=== PATIENT | female | born 1995 | race Caucasian/White ===

== ENCOUNTER → 2017-08-25 | Outpatient (CLI) | payer OTHER ==
[~2017-08-25] MED LIST: DESO1TAB38 PO; DESO1TAB73 PO; NAPR-1023 PO; PRAZ1CAP5 PO; PROP40TA7 PO; TRAM-355 PO; TRAM50TA4 PO
== END | disposition home or self-care (01) ==
LOC: OIH 10:36
PROVIDERS: ATTEND Orthopaedic Surgery
DX: M25.561 Pain in right knee (principal)
CPT/HCPCS: 73700

== ENCOUNTER 2017-09-29 06:21 | Day surgery (SDC) | payer OTHER, SELFPAY ==
[2017-09-28 15:55] VITALS: BP 122/83
[2017-09-28 15:59] LABS: EOSINOPHILS % (AUTO) 2.7 % (0.0-8.0); HEMATOCRIT 38.2 % (36-48); LYMPHOCYTES % (AUTO) 30.8 % (21.0-51.0); MEAN CORPUSCULAR HEMOGLOBIN 27.2 pg (27.0-33.0); MEAN CORPUSCULAR HGB CONC 33.2 g/dL (32.0-36.0); MONOCYTES % (AUTO) 5.9 % (3.0-13.0); NEUTROPHILS % (AUTO) 59.6 % (40.0-77.0); PLATELET COUNT (AUTO) 466 K/uL (130-400); RED BLOOD CELL COUNT(AUTO) 4.66 MIL/uL (4.00-5.50); RED CELL DISTRIBUTION WIDTH 14.7 % (11.0-15.5); WHITE BLOOD COUNT (AUTO) 8.3 K/uL (4.8-10.8)
[2017-09-28 16:09] LABS: POTASSIUM 4.5 mmol/L (3.5-5.1)
[~2017-09-29] VITALS: Ht 167.6 cm; Wt 98.3 kg
[2017-09-29] VITALS (16 sets, daily range): BP systolic 102–135; BP diastolic 61–87
[2017-09-29] MEDS: CEFAZOLIN SODIUM 1 GM VIAL IVP SCH ×2 (06:00→08:38)
[~2017-09-29 06:21] MED LIST changes: -DESO1TAB38 PO; +DEXAMETHASONE SOD PHOSPHATE 10MG/ML 1ML VIAL ONE; +FENTANYL CITRATE PF 50 MCG/1 ML 2ML VIAL ONE; +GLYCOPYRROLATE 0.2 MG/ML 5 ML VIAL ONE; +LIDOCAINE PF 2% 5ML ABBOJECT ONE; +MIDAZOLAM HCL 1 MG/ML 2ML VIAL ONE; -PRAZ1CAP5 PO; -PROP40TA7 PO; +PROPOFOL 10 MG/ML 20ML VIAL IV ONE; -TRAM50TA4 PO
[2017-09-29] MEDS ORDERED: LACTATED RINGERS 1000ML 1,000 ML IV ONE (06:51)
[2017-09-29] MEDS ORDERED: CEFAZOLIN SODIUM 1 GM VIAL ONE (08:25)
[2017-09-29] MEDS ORDERED: FENTANYL CITRATE PF 50 MCG/1 ML 2ML VIAL ONE ×2 (08:41→09:09)
[2017-09-29] MEDS ORDERED: PROPOFOL 10 MG/ML 20ML VIAL IV ONE (08:57)
[2017-09-29] MEDS ORDERED: OCTYL 2-CYANOACRYLATE 1 EACH TP ONE (09:09)
[2017-09-29] MEDS ORDERED: MEPERIDINE-PF 25 MG/ML SYG ONE ×2 (09:29→09:40)
== END 2017-09-29 10:47 | disposition home or self-care (01) ==
LOC: DAH 06:21
PROVIDERS: ATTEND Orthopaedic Surgery
DX: T84.84XA Pain due to internal orthopedic prosthetic devices, implants and grafts, initial encounter (principal); Z68.37 Body mass index [BMI] 37.0-37.9, adult; Z79.899 Other long term (current) drug therapy; Z90.49 Acquired absence of other specified parts of digestive tract; Z98.890 Other specified postprocedural states; M70.51 Other bursitis of knee, right knee; F41.9 Anxiety disorder, unspecified; E66.9 Obesity, unspecified
CPT/HCPCS: 20680; 36415; 80048; 84703; 85025; 88300; A4218; A4606; A4649; A4930 ×3; A6223; J0690 ×2; J1100; J2001; J2175 ×2; J2250; J2704 ×2; J3010 ×3; J3490; J7120 ×2

== ENCOUNTER 2019-02-04 06:40 | Day surgery (SDC) | payer BC ==
[2019-02-01 10:02] VITALS: BP 141/91
[2019-02-01 10:02] LABS: BASOPHILS % (AUTO) 0.9 % (0.0-5.0); EOSINOPHILS % (AUTO) 2.2 % (0.0-8.0); HEMATOCRIT 38.9 % (36-48); LYMPHOCYTES % (AUTO) 32.7 % (21.0-51.0); MEAN CORPUSCULAR HEMOGLOBIN 27.8 pg (27.0-33.0); MEAN CORPUSCULAR HGB CONC 32.7 g/dL (32.0-36.0); MEAN CORPUSCULAR VOLUME 84.8 fL (79-99); MONOCYTES % (AUTO) 6.3 % (3.0-13.0); NEUTROPHILS % (AUTO) 57.9 % (40.0-77.0); PLATELET COUNT (AUTO) 422 K/uL (130-400); RED BLOOD CELL COUNT(AUTO) 4.59 MIL/uL (4.00-5.50); RED CELL DISTRIBUTION WIDTH 14.5 % (11.0-15.5); WHITE BLOOD COUNT (AUTO) 11.4 K/uL (4.8-10.8)
[2019-02-01 10:12] LABS: CREATININE 1.1 mg/dL (0.5-1.5)
--- NOTE | 2019-02-01 16:05 | NUR ---
LABS ABNORMAL LABS CALLED TO DR. MEZA. NO FURTHER ORDERS GIVEN
[2019-02-04] VITALS (16 sets, daily range): BP systolic 114–135; BP diastolic 62–83
[~2019-02-04] VITALS: Ht 166.4 cm; Wt 115.2 kg
[~2019-02-04 06:40] MED LIST changes: -DEXAMETHASONE SOD PHOSPHATE 10MG/ML 1ML VIAL ONE; -FENTANYL CITRATE PF 50 MCG/1 ML 2ML VIAL ONE; -GLYCOPYRROLATE 0.2 MG/ML 5 ML VIAL ONE; -LIDOCAINE PF 2% 5ML ABBOJECT ONE; -MIDAZOLAM HCL 1 MG/ML 2ML VIAL ONE; -NAPR-1023 PO; -PROPOFOL 10 MG/ML 20ML VIAL IV ONE
[2019-02-04] MEDS ORDERED: LACTATED RINGERS 1000ML 1,000 ML IV ONE (06:52)
[2019-02-04] MEDS: CEFAZOLIN SODIUM 1 GM VIAL ONE ×2 (07:44→08:45)
[2019-02-04] MEDS ORDERED: MIDAZOLAM HCL 1 MG/ML 2ML VIAL ONE (08:27)
[2019-02-04] MEDS ORDERED: FENTANYL CITRATE PF 50 MCG/1 ML 5ML AMP IV ONE ×2 (08:27→09:23)
[2019-02-04] MEDS ORDERED: PROPOFOL 10 MG/ML 20ML VIAL IV ONE (08:27)
[2019-02-04] MEDS ORDERED: LIDOCAINE HCL MPF 1% 5ML VIAL ONE (08:30)
[2019-02-04] MEDS ORDERED: ROPIVACAINE 0.5% 5MG/ML 30ML IJ ONE (08:37)
[2019-02-04] MEDS ORDERED: KETOROLAC TROMETHAMINE 30MG/ML ONE (08:56)
[2019-02-04] MEDS ORDERED: DEXAMETHASONE SOD PHOSPHATE 10MG/ML 1ML VIAL ONE (09:15)
[2019-02-04] MEDS ORDERED: ONDANSETRON HCL 4 MG/2 ML VIAL ONE (09:16)
[2019-02-04] MEDS ORDERED: CEFAZOLIN SODIUM 1 GM VIAL ONE (09:25)
[2019-02-04] MEDS ORDERED: TYL3 PO (10:01)
[2019-02-04] MEDS ORDERED: CEPH500B PO (10:01)
--- NOTE | 2019-02-04 10:45 | NUR ---
POST OP RECEIVED PT FROM PACU, S/P REMOVAL OF FOREIGN BODY TO RIGHT KNEE, DRESSING TO SITE DRY AND INTACT,NEUROVASCULAR CHECKS WNL. PATIENT AWAKE AND ALERT, VS STABLE ON ARRIVAL. PLAN OF CARE DISCUSS WITH PATIENT /FAMILY.
--- NOTE | 2019-02-04 11:15 | NUR ---
dc dc instructions given to pt s aunt with rx, instructed to f/u with dr. metcalf. patient states codeine "makes her get headaches". Dr. Metcalf in surgery. pending call back from him to inform him about that. Patient states she will take prescription anyway. Right knee dressing dry and intact, neurovascular checks wnl. patient denies any pain or discomforts.
--- NOTE | 2019-02-04 11:25 | NUR ---
dc pt dc home via [place], no distress noted. accompanied by aunt.patient didnt want to wait for Dr. Weinberg to call back
== END 2019-02-04 11:25 | disposition home or self-care (01) ==
LOC: DAH 06:40
PROVIDERS: ATTEND Orthopaedic Surgery
DX: T84.116A Breakdown (mechanical) of internal fixation device of bone of right lower leg, initial encounter (principal); M25.561 Pain in right knee; G89.29 Other chronic pain; Y83.8 Other surgical procedures as the cause of abnormal reaction of the patient, or of later complication, without mention of misadventure at the time of the procedure; Y92.89 Other specified places as the place of occurrence of the external cause; Z88.8 Allergy status to other drugs, medicaments and biological substances; Z79.899 Other long term (current) drug therapy; Z79.2 Long term (current) use of antibiotics; E66.01 Morbid (severe) obesity due to excess calories; Z68.41 Body mass index [BMI] 40.0-44.9, adult; F41.9 Anxiety disorder, unspecified; Z90.49 Acquired absence of other specified parts of digestive tract; Z98.890 Other specified postprocedural states; Z82.49 Family history of ischemic heart disease and other diseases of the circulatory system
CPT/HCPCS: 20680; 36415; 64447; 76942; 80048; 84703; 85025; 88300; A4649 ×2; A4930; G0168; J0690 ×2; J1100; J1885; J2250; J2405; J2704; J2795; J3010 ×2; J3490; J7120

== ENCOUNTER 2019-05-29 21:02 | Emergency (ER) | payer BC ==
[~2019-05-29 21:02] MED LIST changes: +CEPH500B PO; -TRAM-355 PO; +TYL3 PO
[2019-05-29] MEDS ORDERED: SODIUM CHLORIDE 0.9% 1000ML 1,000 ML IV ONE ×2 (21:45→22:50)
[2019-05-29] MEDS ORDERED: ONDANSETRON HCL 4 MG/2 ML VIAL ONE (21:47)
[2019-05-29] MEDS ORDERED: KETOROLAC TROMETHAMINE 30MG/ML ONE (22:01)
[2019-05-29 22:16] LABS: BASOPHILS % (AUTO) 0.2 % (0.0-5.0); EOSINOPHILS % (AUTO) 0.2 % (0.0-8.0); HEMATOCRIT 40.1 % (36-48); LYMPHOCYTES % (AUTO) 4.2 % (21.0-51.0); MEAN CORPUSCULAR HEMOGLOBIN 27.4 pg (27.0-33.0); MEAN CORPUSCULAR HGB CONC 31.9 g/dL (32.0-36.0); MEAN CORPUSCULAR VOLUME 85.7 fL (79-99); MONOCYTES % (AUTO) 3.5 % (3.0-13.0); NEUTROPHILS % (AUTO) 91.7 % (40.0-77.0); PLATELET COUNT (AUTO) 416 K/uL (130-400); RED BLOOD CELL COUNT(AUTO) 4.68 MIL/uL (4.00-5.50); RED CELL DISTRIBUTION WIDTH 14.1 % (11.0-15.5); WHITE BLOOD COUNT (AUTO) 13.1 K/uL (4.8-10.8)
[2019-05-29 22:51] LABS: CREATININE 1.3 mg/dL (0.5-1.5); POTASSIUM 3.7 mmol/L (3.5-5.1)
[2019-05-29 22:55] LABS: ALBUMIN 3.5 g/dL (3.5-5.0); BILIRUBIN,TOTAL 0.4 mg/dL (0.2-1.0); TOTAL PROTEIN, SERUM 7.7 g/dL (6.0-8.3)
[2019-05-29 23:15] LABS: APPEARANCE,URINE Clear (CLEAR); BILIRUBIN,URINE Negative (NEGATIVE); COLOR,URINE Yellow (YELLOW); GLUCOSE, URINE (UA) Negative (NEGATIVE); KETONES,URINE Trace mg/dL (NEGATIVE); LEUKOCYTE ESTERASE ,URINE Negative (NEGATIVE); NITRATE,URINE Negative (NEGATIVE); OCCULT BLOOD,URINE Moderate (NEGATIVE); PROTEIN,URINE Negative (NEGATIVE); UROBILINOGEN,URINE 0.2 mg/dL (0.2-1.0)
[2019-05-29 23:18] LABS: HCG,QUAL RESULT NEGATIVE (NEGATIVE)
[2019-05-29 23:21] LABS: BACTERIA,URINE None Seen /HPF (None Seen); MUCUS,URINE Few LPF (None Seen); SQUAMOUS EPITHELIAL CELL,UR Few /HPF (0-2); WBC,URINE None Seen /HPF (0-1)
[2019-05-29] MEDS ORDERED: CEFTRIAXONE SODIUM 1 GM ONE (23:22)
[2019-05-29] MEDS ORDERED: ACETAMINOPHEN 325 MG TAB ONE (23:22)
== END 2019-05-30 00:41 | disposition home or self-care (01) ==
LOC: EDH 21:02
DX: K52.9 Noninfective gastroenteritis and colitis, unspecified (principal); E86.0 Dehydration; Z98.890 Other specified postprocedural states; Z72.0 Tobacco use
CPT/HCPCS: 36415; 80053; 81001; 81025; 83690; 85025; 96361 ×2; 96374; 96375; 99284; J0696; J1885; J2405; J7030 ×2

== ENCOUNTER 2019-08-14 05:52 | Day surgery (SDC) | payer OTHER ==
[~2019-08-14] VITALS: Ht 165.1 cm; Wt 108.9 kg
[~2019-08-14 05:52] MED LIST changes: -CEPH500B PO; -TYL3 PO
[2019-08-14] MEDS ORDERED: SODIUM CHLORIDE 0.9% 1000ML 1,000 ML IV ONE (06:22)
[2019-08-14 06:37] VITALS: BP 138/102
[2019-08-14] MEDS ORDERED: MIDAZOLAM HCL 1 MG/ML 2ML VIAL ONE (06:50)
[2019-08-14] MEDS ORDERED: PROPOFOL 10 MG/ML 20ML VIAL IV ONE ×2 (06:50→07:33)
[2019-08-14] MEDS ORDERED: LIDOCAINE HCL 2% 20ML ONE (06:50)
[2019-08-14 07:41] VITALS: BP 154/94
[2019-08-14] MEDS ORDERED: ONDANSETRON HCL 4 MG/2 ML VIAL ONE (07:42)
[2019-08-14 07:46] VITALS: BP 141/92
[2019-08-14 07:51] VITALS: BP 140/88
[2019-08-14 07:56] VITALS: BP 135/86
[2019-08-14 08:02] VITALS: BP 142/89
== END 2019-08-14 08:11 | disposition home or self-care (01) ==
LOC: DAH 05:52 → ENDO 05:52
PROVIDERS: ATTEND Internal Medicine
DX: K29.70 Gastritis, unspecified, without bleeding (principal); K31.89 Other diseases of stomach and duodenum; F41.9 Anxiety disorder, unspecified; F32.9 Major depressive disorder, single episode, unspecified; E66.9 Obesity, unspecified; Z68.39 Body mass index [BMI] 39.0-39.9, adult; Z79.899 Other long term (current) drug therapy; Z98.890 Other specified postprocedural states; Z88.8 Allergy status to other drugs, medicaments and biological substances
CPT/HCPCS: 36415; 43239; 84703; A4215; A4221; A4222; A4223; A4606; A4620; A4649; A4663; J2250; J2405; J2704 ×2; J3490; J7030

== ENCOUNTER 2019-09-12 11:35 | Emergency (ER) | payer OTHER | END 2019-09-12 12:22 | disposition home or self-care (01) | LOC: EDH 11:35 | DX: M25.511 Pain in right shoulder (principal); Z90.49 Acquired absence of other specified parts of digestive tract; Z87.891 Personal history of nicotine dependence | CPT/HCPCS: 99281 ==

== ENCOUNTER → 2019-10-21 | Outpatient (CLI) | payer OTHER | END | disposition home or self-care (01) | LOC: LAB 14:05 | PROVIDERS: ATTEND Internal Medicine | DX: B96.81 Helicobacter pylori [H. pylori] as the cause of diseases classified elsewhere (principal) | CPT/HCPCS: 36415; 83013 ==

== ENCOUNTER 2021-02-05 06:58 | Day surgery (SDC) | payer OTHER ==
[2021-02-05] VITALS (15 sets, daily range): BP systolic 127–154; BP diastolic 74–96
[~2021-02-05 06:58] MED LIST changes: +ACET-2247 PO; +CALDOLOR 800MG+NS 250ML 250 ML IV SCH; -DESO1TAB73 PO; +DIPH25CA85 PO; +LACTATED RINGERS 1000ML 1,000 ML IV SCH; +NORE1TAB28 PO; +SERT25TA PO
[2021-02-05 07:29] LABS: BASOPHILS % (AUTO) 0.9 % (0.0-5.0); EOSINOPHILS % (AUTO) 1.4 % (0.0-8.0); HEMATOCRIT 36.6 % (36-48); LYMPHOCYTES % (AUTO) 27.9 % (21.0-51.0); MEAN CORPUSCULAR HEMOGLOBIN 27.5 pg (27.0-33.0); MEAN CORPUSCULAR HGB CONC 32.2 g/dL (32.0-36.0); MEAN CORPUSCULAR VOLUME 85.3 fL (79-99); MONOCYTES % (AUTO) 6.5 % (3.0-13.0); PLATELET COUNT (AUTO) 448 K/uL (130-400); RED BLOOD CELL COUNT(AUTO) 4.29 MIL/uL (4.00-5.50); RED CELL DISTRIBUTION WIDTH 14.5 % (11.0-15.5); WHITE BLOOD COUNT (AUTO) 9.6 K/uL (4.8-10.8)
[2021-02-05] MEDS ORDERED: SUCCINYLCHOLINE CHLORIDE 20 MG/ML 10 ML VIAL ONE (08:15)
[2021-02-05] MEDS ORDERED: PROPOFOL 10 MG/ML 20ML VIAL IV ONE (08:15)
[2021-02-05] MEDS ORDERED: FENTANYL CITRATE PF 50 MCG/1 ML 2ML VIAL ONE (08:15)
[2021-02-05] MEDS ORDERED: LIDOCAINE HCL MPF 1% 5ML VIAL ONE (08:15)
[2021-02-05] MEDS ORDERED: ROCURONIUM 10MG/1ML SYR 10 MG/ML ML ONE (08:15)
[2021-02-05] MEDS ORDERED: MIDAZOLAM HCL 1 MG/ML 2ML VIAL ONE (08:15)
[2021-02-05] MEDS: CEFAZOLIN SODIUM 1 GM VIAL IVP SCH ×2 (08:30→08:53)
[2021-02-05] MEDS ORDERED: GLYCOPYRROLATE 1 MG/5 ML SYRINGE ONE (08:38)
[2021-02-05] MEDS ORDERED: NEOSTIGMINE 5MG/5ML SYR IV ONE (08:38)
[2021-02-05] MEDS ORDERED: ONDANSETRON 4MG INJ ONE (08:55)
[2021-02-05] MEDS ORDERED: MEPERIDINE-PF 25 MG/ML SYG ONE (09:01)
[2021-02-05] MEDS ORDERED: MORPHINE 2 MG SYG ONE (09:17)
== END 2021-02-05 10:15 | disposition home or self-care (01) ==
LOC: DAH 06:58
PROVIDERS: ATTEND Obstetrics & Gynecology
DX: N92.1 Excessive and frequent menstruation with irregular cycle (principal); G43.909 Migraine, unspecified, not intractable, without status migrainosus; F41.9 Anxiety disorder, unspecified; F32.9 Major depressive disorder, single episode, unspecified; K21.9 Gastro-esophageal reflux disease without esophagitis; Z90.49 Acquired absence of other specified parts of digestive tract; Z79.899 Other long term (current) drug therapy; Z20.822 Contact with and (suspected) exposure to COVID-19
CPT/HCPCS: 36415; 58558; 84703; 85025; 86850; 86900; 86901; 87635; A4215; A4221; A4222; A4223; A4351; A4355; A4663; A6260; C9803; J0330; J0690; J1741; J2175; J2250; J2405; J2704; J2710; J3010; J3490 ×2; J7030 ×2; J7120

== ENCOUNTER 2021-12-21 06:10 | Day surgery (SDC) | payer OTHER ==
[2021-12-17 12:06] LABS: BASOPHILS % (AUTO) 0.6 % (0.0-5.0); EOSINOPHILS % (AUTO) 1.3 % (0.0-8.0); HEMATOCRIT 39.1 % (36-48); LYMPHOCYTES % (AUTO) 28.8 % (21.0-51.0); MEAN CORPUSCULAR HGB CONC 31.7 g/dL (32.0-36.0); MEAN CORPUSCULAR VOLUME 85.2 fL (79-99); MONOCYTES % (AUTO) 6.7 % (3.0-13.0); NEUTROPHILS % (AUTO) 62.4 % (40.0-77.0); PLATELET COUNT (AUTO) 455 K/uL (130-400); RED BLOOD CELL COUNT(AUTO) 4.59 MIL/uL (4.00-5.50); RED CELL DISTRIBUTION WIDTH 15.4 % (11.0-15.5); WHITE BLOOD COUNT (AUTO) 9.1 K/uL (4.8-10.8)
[2021-12-17 12:21] LABS: INR 0.93 (0.85-1.15); PROTHROMBIN TIME 9.8 SEC (9.6-11.6)
[2021-12-17 12:23] LABS: PARTIAL THROMBOPLASTIN TIME 26.4 SEC (26.3-35.5)
[2021-12-17 12:33] LABS: CREATININE 1.4 mg/dL (0.5-1.5); POTASSIUM 3.7 mmol/L (3.5-5.1)
[2021-12-20 10:32] VITALS: BP 146/94
[2021-12-21] VITALS (8 sets, daily range): BP systolic 134–154; BP diastolic 90–100
[~2021-12-21] VITALS: Ht 167.6 cm; Wt 113.1 kg
[~2021-12-21 06:10] MED LIST changes: -ACET-2247 PO; -CALDOLOR 800MG+NS 250ML 250 ML IV SCH; +CLON1TAB12 PO; -DIPH25CA85 PO; -LACTATED RINGERS 1000ML 1,000 ML IV SCH; +METO-391 PO; +METO10TA41 PO; +SERT-440 PO; -SERT25TA PO
[2021-12-21] MEDS ORDERED: 0.9%NACL 1000ML 1,000 ML IV ONE (06:24)
[2021-12-21] MEDS ORDERED: HEPARIN 10,000 UNIT/10ML (1,000 UNIT/ML) VIAL ONE (07:28)
[2021-12-21] MEDS ORDERED: LIDOCAINE HCL 400MG/20ML VIAL ONE ×2 (07:29→07:32)
[2021-12-21] MEDS ORDERED: MEPERIDINE-PF 25 MG/ML SYG ONE ×3 (07:40→09:43)
[2021-12-21] MEDS ORDERED: MIDAZOLAM HCL 1 MG/ML 2ML VIAL ONE ×3 (07:40→09:42)
[2021-12-21] MEDS ORDERED: ISOPROTERENOL HCL 0.2 MG/ML AMP/VIAL/BAG ONE (09:07)
[2021-12-21] MEDS ORDERED: PROP80SR PO (10:24)
[2021-12-21] MEDS ORDERED: TRAMADOL HCL 50 MG TABLET ONE (11:03)
[2021-12-21] MEDS ORDERED: TRAMADOL HCL 50 MG TABLET PO SCH (11:30)
== END 2021-12-21 14:00 | disposition home or self-care (01) ==
LOC: DAH 06:10
PROVIDERS: ATTEND Internal Medicine Cardiovascular Disease
DX: I47.1 Supraventricular tachycardia (principal); F41.9 Anxiety disorder, unspecified; G47.00 Insomnia, unspecified; Z79.01 Long term (current) use of anticoagulants; Z79.899 Other long term (current) drug therapy; Z90.49 Acquired absence of other specified parts of digestive tract; Z98.890 Other specified postprocedural states
CPT/HCPCS: 36415; 80048; 84703; 85025; 85610; 85730; 93005; 93620; 93621; 93623; A4215; A4216; A4221; A4222; A4223 ×3; A4606; A4649 ×2; A4663; C1730 ×4; C1894 ×5; J1644 ×2; J2175 ×3; J2250 ×3; J3490 ×3; J7030; 99156; 99157

== ENCOUNTER 2022-05-12 22:57 | Emergency (ER) | payer OTHER ==
[~2022-05-12] VITALS: Ht 167.6 cm; Wt 97.2 kg
[~2022-05-12 22:57] MED LIST changes: -METO-391 PO; +PROP80SR PO
[2022-05-12 23:27] LABS: BASOPHILS % (AUTO) 0.6 % (0.0-5.0); EOSINOPHILS % (AUTO) 0.8 % (0.0-8.0); HEMATOCRIT 38.4 % (36-48); LYMPHOCYTES % (AUTO) 31.7 % (21.0-51.0); MEAN CORPUSCULAR HEMOGLOBIN 28.6 pg (27.0-33.0); MEAN CORPUSCULAR HGB CONC 33.3 g/dL (32.0-36.0); MEAN CORPUSCULAR VOLUME 85.9 fL (79-99); NEUTROPHILS % (AUTO) 58.5 % (40.0-77.0); PLATELET COUNT (AUTO) 381 K/uL (130-400); RED BLOOD CELL COUNT(AUTO) 4.47 MIL/uL (4.00-5.50); RED CELL DISTRIBUTION WIDTH 18.8 % (11.0-15.5); WHITE BLOOD COUNT (AUTO) 9.8 K/uL (4.8-10.8)
[2022-05-12 23:38] LABS: CREATININE 1.1 mg/dL (0.5-1.5); POTASSIUM 3.8 mmol/L (3.5-5.1)
[2022-05-12 23:42] LABS: ALBUMIN 3.4 g/dL (3.5-5.0); TOTAL PROTEIN, SERUM 7.2 g/dL (6.0-8.3)
[2022-05-13 00:09] LABS: APPEARANCE,URINE CLOUDY (CLEAR); BILIRUBIN,URINE 0.5 mg/dL (NEGATIVE); COLOR,URINE LIGHT-ORANGE (YELLOW); GLUCOSE, URINE (UA) NEGATIVE (NEGATIVE); KETONES,URINE 10 mg/dL (NEGATIVE); LEUKOCYTE ESTERASE ,URINE 75 Leu/uL (NEGATIVE); NITRATE,URINE NEGATIVE (NEGATIVE); OCCULT BLOOD,URINE LARGE (NEGATIVE); PROTEIN,URINE 30 mg/dL (NEGATIVE)
[2022-05-13 00:25] LABS: BACTERIA,URINE None Seen /HPF (None Seen); RBC,URINE TNTC /HPF (0-1)
[2022-05-13 00:26] LABS: SQUAMOUS EPITHELIAL CELL,UR Moderate /HPF (0-2)
[2022-05-13 00:30] VITALS: BP 163/106
[2022-05-13] MEDS ORDERED: IBUP-2071 PO (01:20)
[2022-05-13] MEDS ORDERED: MEDR10TA PO (01:20)
[2022-05-13] MEDS ORDERED: MEDROXYPROGESTERONE ACET 5 MG TAB PO SCH (01:30)
== END 2022-05-13 01:46 | disposition home or self-care (01) ==
LOC: EDH 22:57
DX: N93.8 Other specified abnormal uterine and vaginal bleeding (principal); F43.10 Post-traumatic stress disorder, unspecified; Z90.49 Acquired absence of other specified parts of digestive tract
CPT/HCPCS: 36415; 76856; 80053; 81001; 81025; 85025; 86850; 86900; 86901; 87088

== ENCOUNTER 2022-06-25 09:29 | Emergency (ER) | payer BC, OTHER ==
[~2022-06-25] VITALS: Ht 167.6 cm; Wt 93.4 kg
[~2022-06-25 09:29] MED LIST changes: +IBUP-2071 PO; +MEDR10TA PO
[2022-06-25 11:00] LABS: BASOPHILS % (AUTO) 0.6 % (0.0-5.0); EOSINOPHILS % (AUTO) 1.3 % (0.0-8.0); HEMATOCRIT 40.8 % (36-48); LYMPHOCYTES % (AUTO) 25.8 % (21.0-51.0); MEAN CORPUSCULAR HEMOGLOBIN 31.1 pg (27.0-33.0); MEAN CORPUSCULAR HGB CONC 32.8 g/dL (32.0-36.0); MEAN CORPUSCULAR VOLUME 94.7 fL (79-99); MONOCYTES % (AUTO) 5.5 % (3.0-13.0); NEUTROPHILS % (AUTO) 66.5 % (40.0-77.0); PLATELET COUNT (AUTO) 345 K/uL (130-400); RED BLOOD CELL COUNT(AUTO) 4.31 MIL/uL (4.00-5.50); RED CELL DISTRIBUTION WIDTH 16.7 % (11.0-15.5); WHITE BLOOD COUNT (AUTO) 7.8 K/uL (4.8-10.8)
[2022-06-25 11:01] LABS: APPEARANCE,URINE CLOUDY (CLEAR); BILIRUBIN,URINE NEGATIVE (NEGATIVE); COLOR,URINE YELLOW (YELLOW); GLUCOSE, URINE (UA) NEGATIVE (NEGATIVE); KETONES,URINE 5 mg/dL (NEGATIVE); LEUKOCYTE ESTERASE ,URINE NEGATIVE Leu/uL (NEGATIVE); NITRATE,URINE NEGATIVE (NEGATIVE); OCCULT BLOOD,URINE LARGE (NEGATIVE); PROTEIN,URINE 30 mg/dL (NEGATIVE); UROBILINOGEN,URINE 0.2 mg/dL (0.2-1.0)
[2022-06-25 11:08] LABS: BACTERIA,URINE RARE /HPF (None Seen); MUCUS,URINE RARE LPF (None Seen); RBC,URINE TNTC /HPF (0-1); SQUAMOUS EPITHELIAL CELL,UR MANY /HPF (0-2)
[2022-06-25 11:12] LABS: HCG,QUALITATIVE URINE NEGATIVE (NEGATIVE)
[2022-06-25 11:18] LABS: CREATININE 1.3 mg/dL (0.5-1.5); POTASSIUM 3.9 mmol/L (3.5-5.1)
[2022-06-25 11:23] LABS: ALBUMIN 3.6 g/dL (3.5-5.0); TOTAL PROTEIN, SERUM 7.9 g/dL (6.0-8.3)
[2022-06-25 11:33] VITALS: BP 171/106
[2022-07-01] MEDS ORDERED: ARIP5TAB8 PO (11:16)
[2022-07-01] MEDS ORDERED: AMPH20TA3 PO (11:16)
[2022-07-01] MEDS ORDERED: SERT-438 PO (11:16)
[2022-07-01] MEDS ORDERED: TRAN650T2 PO (11:17)
== END 2022-06-25 11:29 | disposition left against medical advice (07) ==
LOC: EDH 09:29
DX: N93.9 Abnormal uterine and vaginal bleeding, unspecified (principal); Z53.21 Procedure and treatment not carried out due to patient leaving prior to being seen by health care provider
CPT/HCPCS: 36415; 80053; 81001; 81025; 85025; 86900; 86901; 87088

== ENCOUNTER 2023-01-08 20:46 | Emergency (ER) | payer BC, OTHER ==
[~2023-01-08] VITALS: Ht 165.1 cm; Wt 95.7 kg
[~2023-01-08 20:46] MED LIST changes: +AMPH20TA3 PO; +ARIP5TAB8 PO; -MEDR10TA PO; -METO10TA41 PO; -PROP80SR PO; +SERT-438 PO; +TRAN650T2 PO
[2023-01-08 20:47] VITALS: BP 153/80; PULSE 71; RESP 18
[2023-01-08 21:52] LABS: APPEARANCE,URINE CLEAR (CLEAR); BILIRUBIN,URINE NEGATIVE (NEGATIVE); COLOR,URINE LIGHT-YELLOW (YELLOW); GLUCOSE, URINE (UA) NEGATIVE (NEGATIVE); KETONES,URINE NEGATIVE (NEGATIVE); LEUKOCYTE ESTERASE ,URINE NEGATIVE Leu/uL (NEGATIVE); NITRATE,URINE NEGATIVE (NEGATIVE); OCCULT BLOOD,URINE LARGE (NEGATIVE); PROTEIN,URINE NEGATIVE (NEGATIVE); UROBILINOGEN,URINE 0.2 mg/dL (0.2-1.0)
[2023-01-08 21:56] LABS: RBC,URINE 51-100 /HPF (0-1); SQUAMOUS EPITHELIAL CELL,UR RARE /HPF (0-2)
[2023-01-08 22:04] LABS: HCG,QUALITATIVE URINE NEGATIVE (NEGATIVE)
[2023-01-08 22:27] LABS: BASOPHILS % (AUTO) 0.8 % (0.0-5.0); EOSINOPHILS % (AUTO) 1.6 % (0.0-8.0); HEMATOCRIT 38.5 % (36-48); LYMPHOCYTES % (AUTO) 30.6 % (21.0-51.0); MEAN CORPUSCULAR HEMOGLOBIN 27.8 pg (27.0-33.0); MEAN CORPUSCULAR HGB CONC 31.9 g/dL (32.0-36.0); MEAN CORPUSCULAR VOLUME 86.9 fL (79-99); MONOCYTES % (AUTO) 7.4 % (3.0-13.0); NEUTROPHILS % (AUTO) 59.2 % (40.0-77.0); PLATELET COUNT (AUTO) 387 K/uL (130-400); RED BLOOD CELL COUNT(AUTO) 4.43 MIL/uL (4.00-5.50); RED CELL DISTRIBUTION WIDTH 13.8 % (11.0-15.5); WHITE BLOOD COUNT (AUTO) 10.9 K/uL (4.8-10.8)
[2023-01-08] MEDS ORDERED: KETOROLAC 30MG VIAL (30MG/ML) IM ONE (22:30)
[2023-01-08] MEDS ORDERED: IBUP-2070 PO (22:58)
== END 2023-01-08 23:15 | disposition home or self-care (01) ==
LOC: EDH 20:46
DX: R10.30 Lower abdominal pain, unspecified (principal); N94.6 Dysmenorrhea, unspecified; F41.9 Anxiety disorder, unspecified; F32.A Depression, unspecified; Z88.8 Allergy status to other drugs, medicaments and biological substances; Z79.899 Other long term (current) drug therapy
CPT/HCPCS: 99283; 85025; 81001; 81025; 36415; 96372; J1885

== ENCOUNTER 2023-01-09 12:40 | Emergency (ER) | payer OTHER ==
[~2023-01-09] VITALS: Ht 165.1 cm; Wt 95.7 kg
[~2023-01-09 12:40] MED LIST changes: +IBUP-2070 PO
[2023-01-09 12:46] VITALS: BP 146/91; PULSE 68; RESP 17
[2023-01-09 13:31] LABS: BASOPHILS # (AUTO) 0.08 K/uL (0.00-0.20); BASOPHILS % (AUTO) 0.9 % (0.0-5.0); EOSINOPHILS # (AUTO) 0.14 K/uL (0.00-0.70); EOSINOPHILS % (AUTO) 1.6 % (0.0-8.0); HEMATOCRIT 36.6 % (36-48); IMMATURE GRANULOCYTE ABSOLUTE 0.03 K/uL (0-1); LYMPHOCYTES # (AUTO) 2.6 K/uL (1.0-4.8); LYMPHOCYTES % (AUTO) 28.8 % (21.0-51.0); MEAN CORPUSCULAR HEMOGLOBIN 27.8 pg (27.0-33.0); MEAN CORPUSCULAR VOLUME 86.9 fL (79-99); MONOCYTES # (AUTO) 0.6 K/uL (0.1-1.0); NEUTROPHILS # (AUTO) 5.5 K/uL (1.8-7.7); NEUTROPHILS % (AUTO) 61.4 % (40.0-77.0); PLATELET COUNT (AUTO) 369 K/uL (130-400); RED BLOOD CELL COUNT(AUTO) 4.21 MIL/uL (4.00-5.50); WHITE BLOOD COUNT (AUTO) 8.9 K/uL (4.8-10.8)
[2023-01-09 13:49] LABS: CREATININE 1.2 mg/dL (0.5-1.5); POTASSIUM 4.6 mmol/L (3.5-5.1)
[2023-01-09 14:00] LABS: ALBUMIN 3.2 g/dL (3.5-5.0); BILIRUBIN,TOTAL 0.1 mg/dL (0.2-1.0); TOTAL PROTEIN, SERUM 6.5 g/dL (6.0-8.3)
== END 2023-01-09 15:21 | disposition left against medical advice (07) ==
LOC: EDH 12:40
DX: O46.90 Antepartum hemorrhage, unspecified, unspecified trimester (principal); Z3A.00 Weeks of gestation of pregnancy not specified
CPT/HCPCS: 36415; 80053; 84702; 85025